=== PATIENT | female | born 1965 | race Asian ===

== ENCOUNTER → 2017-11-07 | Outpatient (CLI) | payer BC | END | disposition home or self-care (01) | LOC: RAD 10:29 | DX: M25.511 Pain in right shoulder (principal) | CPT/HCPCS: 73030; 73030-RT ==

== ENCOUNTER 2018-03-15 10:06 | Inpatient (IN) | payer BC ==
[2018-03-15] MEDS ORDERED: NITROGLYCERIN (SL) 0.4 MG TAB SL (10:30)
[2018-03-15 10:53] LABS: ADD MAN DIFF? NO
[2018-03-15] MEDS: NITROGLYCERIN 2% 1 GM OINT PKT TD (10:56)
[2018-03-15] MEDS: ASPIRIN 81 MG TAB PO (10:56)
[2018-03-15] MEDS: ONDANSETRON 4 MG INJ IV ×2 (11:00→20:01)
[2018-03-15] MEDS: morphine 4 MG/ML VIAL IV ×2 (11:00→18:07)
[2018-03-15 11:02] LABS: WHITE BLOOD COUNT 6.9 10^3/ul (4.8-10.8)
[2018-03-15 11:02] LABS: BASOPHILS % 0.4 % (0.0-2.0); EOSINOPHILS % 0.4 % (0.0-7.0); HEMATOCRIT 41.4 % (37.0-47.0); HEMOGLOBIN 13.6 g/dl (12.0-16.0); LYMPHOCYTES # 1.4 10^3/ul (0.8-2.9); LYMPHOCYTES % 19.9 % (15.0-51.0); MEAN CORPUSCULAR HEMOGLOBIN 29.3 pg (29.0-33.0); MEAN CORPUSCULAR HGB CONC 32.9 g/dl (32.0-37.0); MEAN CORPUSCULAR VOLUME 89.2 fl (82.0-101.0); MEAN PLATELET VOLUME 9.4 fl (7.4-10.4); MONOCYTE # 0.4 10^3/ul (0.3-0.9); MONOCYTES % 6.3 % (0.0-11.0); NEUTROPHILS % 72.7 % (39.0-77.0); PLATELET COUNT 276 10^3/UL (140-415); RED BLOOD COUNT 4.64 10^6/ul (4.20-5.40); RED CELL DISTRIBUTION WIDTH 12.6 % (11.5-14.5)
[2018-03-15 11:14] LABS: ANION GAP 12 (5-13); BLOOD UREA NITROGEN 13 mg/dl (7-20); CALCIUM 9.8 mg/dl (8.4-10.2); CARBON DIOXIDE 25 mmol/L (21-31); CHLORIDE 103 mmol/L (97-110); CREATININE 0.54 mg/dl (0.44-1.00); Estimated GFR > 60 mL/min (>60); GLUCOSE 121 mg/dl (70-220); SODIUM 140 mmol/L (135-144)
[2018-03-15 11:24] LABS: TROPONIN-I < 0.012 ng/ml (0.000-0.120)
[2018-03-15] MEDS ORDERED: ACETAMINOPHEN 325 MG TAB PO (12:00)
[2018-03-15] MEDS: ANASTROZOLE 1 MG TAB PO (16:00)
[2018-03-15] MEDS ORDERED: ALPRAZOLAM 0.25 MG TAB PO (16:00)
[2018-03-15] MEDS: CHOLECALCIFEROL 2,000 UNIT CAP PO (16:00)
[2018-03-15] MEDS: MELOXICAM 15 MG TAB PO (16:00)
[2018-03-15] MEDS ORDERED: ZOLPIDEM 5 MG TAB PO (16:00)
[2018-03-15 17:13] LABS: CREATINE KINASE 54 IU/L (23-200)
[2018-03-15 17:27] LABS: CK INDEX 0.8; CK-MB 0.42 ng/ml (0.0-2.4); TROPONIN-I < 0.012 ng/ml (0.000-0.120)
[2018-03-15] MEDS ORDERED: FISH OIL 1,000 MG CAP PO (19:47)
[2018-03-15] MEDS ORDERED: ZOLPIDEM 5 MG TAB (19:50)
[2018-03-15] MEDS: FISH OIL 1,000 MG CAP PO (19:59)
[2018-03-15] MEDS: PANTOPRAZOLE (EC) 40 MG TAB PO (20:00)
[2018-03-15] MEDS: ZOLPIDEM 5 MG TAB PO (20:00)
[2018-03-15] MEDS: ALPRAZOLAM 0.5 MG TAB PO (20:00)
[2018-03-15 23:47] LABS: CREATINE KINASE 52 IU/L (23-200)
[2018-03-15 23:58] LABS: CK INDEX 0.5; CK-MB 0.26 ng/ml (0.0-2.4); TROPONIN-I < 0.012 ng/ml (0.000-0.120)
[2018-03-16] MEDS ORDERED: PANTOPRAZOLE (EC) 40 MG TAB PO (04:55)
[2018-03-16] MEDS: PANTOPRAZOLE (EC) 40 MG TAB PO ×2 (06:03→17:26)
[2018-03-16] MEDS: ONDANSETRON 4 MG INJ IV ×2 (06:03→14:54)
[2018-03-16] MEDS: ALPRAZOLAM 0.5 MG TAB PO ×2 (06:03→20:27)
[2018-03-16] MEDS: morphine 4 MG/ML VIAL IV ×3 (06:03→20:28)
[2018-03-16 06:05] LABS: ADD MAN DIFF? NO
[2018-03-16 06:08] LABS: BASOPHILS % 0.3 % (0.0-2.0); EOSINOPHILS % 0.4 % (0.0-7.0); HEMATOCRIT 38.1 % (37.0-47.0); HEMOGLOBIN 12.7 g/dl (12.0-16.0); LYMPHOCYTES # 1.3 10^3/ul (0.8-2.9); LYMPHOCYTES % 19.2 % (15.0-51.0); MEAN CORPUSCULAR HEMOGLOBIN 29.5 pg (29.0-33.0); MEAN CORPUSCULAR HGB CONC 33.3 g/dl (32.0-37.0); MEAN CORPUSCULAR VOLUME 88.4 fl (82.0-101.0); MEAN PLATELET VOLUME 9.6 fl (7.4-10.4); MONOCYTE # 0.5 10^3/ul (0.3-0.9); MONOCYTES % 7.4 % (0.0-11.0); NEUTROPHIL # 4.9 10^3/ul (1.6-7.5); NEUTROPHILS % 72.4 % (39.0-77.0); PLATELET COUNT 296 10^3/UL (140-415); RED BLOOD COUNT 4.31 10^6/ul (4.20-5.40); RED CELL DISTRIBUTION WIDTH 12.5 % (11.5-14.5)
[2018-03-16 06:08] LABS: WHITE BLOOD COUNT 6.8 10^3/ul (4.8-10.8)
[2018-03-16 06:43] LABS: ALANINE AMINOTRANSFERASE 18 IU/L (13-69); ALBUMIN 4.1 g/dl (3.3-4.9); ALKALINE PHOSPHATASE 62 IU/L (42-121); ANION GAP 14 (5-13); ASPARTATE AMINO TRANSFERASE 21 IU/L (15-46); BILIRUBIN,INDIRECT 0.6 mg/dl (0-1.1); BILIRUBIN,TOTAL 0.6 mg/dl (0.2-1.3); BLOOD UREA NITROGEN 11 mg/dl (7-20); CALCIUM 9.3 mg/dl (8.4-10.2); CARBON DIOXIDE 29 mmol/L (21-31); CHLORIDE 97 mmol/L (97-110); CHOL/HDL RATIO 2.7 RATIO; CHOLESTEROL 232 mg/dl (100-200); Estimated GFR > 60 mL/min (>60); GLUCOSE 106 mg/dl (70-220); HDL CHOLESTEROL 84 mg/dl (37-92); LDL CHOLESTEROL,CALCULATED 134 mg/dl; POTASSIUM 3.9 mmol/L (3.5-5.1); SODIUM 140 mmol/L (135-144); TOTAL PROTEIN 7.5 g/dl (6.1-8.1); TRIGLYCERIDES 71 mg/dl (0-149)
[2018-03-16] MEDS: CHOLECALCIFEROL 2,000 UNIT CAP PO (08:38)
[2018-03-16] MEDS: MELOXICAM 15 MG TAB PO (08:38)
[2018-03-16] MEDS: FISH OIL 1,000 MG CAP PO (08:39)
[2018-03-16] MEDS: ANASTROZOLE 1 MG TAB PO (11:05)
[2018-03-16] MEDS: DOCUSATE SODIUM 100 MG CAP PO (17:26)
[2018-03-16] MEDS: ZOLPIDEM 5 MG TAB PO (20:27)
[2018-03-16] MEDS: CYCLOBENZAPRINE 10 MG TAB PO (20:27)
[2018-03-17] MEDS: ONDANSETRON 4 MG INJ IV (05:00)
[2018-03-17] MEDS: morphine 4 MG/ML VIAL IV ×2 (05:00→14:08)
[2018-03-17] MEDS: PANTOPRAZOLE (EC) 40 MG TAB PO ×2 (05:02→18:21)
[2018-03-17] MEDS: ALPRAZOLAM 0.5 MG TAB PO ×2 (05:02→14:00)
[2018-03-17] MEDS: CYCLOBENZAPRINE 10 MG TAB PO ×2 (05:02→20:02)
[2018-03-17] MEDS: DOCUSATE SODIUM 100 MG CAP PO ×2 (05:02→14:08)
[2018-03-17] MEDS: REGADENOSON 0.4 MG/5 ML SYG (10:09)
[2018-03-17] MEDS: FISH OIL 1,000 MG CAP PO (11:07)
[2018-03-17] MEDS: CHOLECALCIFEROL 2,000 UNIT CAP PO (11:07)
[2018-03-17] MEDS: MELOXICAM 15 MG TAB PO (11:07)
[2018-03-17] MEDS: ANASTROZOLE 1 MG TAB PO (11:13)
[2018-03-17] MEDS: ENOXAPARIN 40 MG/0.4 ML SYG SC (14:20)
[2018-03-17] MEDS: ZOLPIDEM 5 MG TAB PO (20:02)
[2018-03-18] MEDS: morphine LIQ (10 MG/5 ML) CUP PO ×4 (00:07→12:07)
[2018-03-18] MEDS: ALPRAZOLAM 0.5 MG TAB PO ×2 (02:08→10:34)
[2018-03-18] MEDS: PANTOPRAZOLE (EC) 40 MG TAB PO (06:00)
[2018-03-18] MEDS: ONDANSETRON 4 MG INJ IV (07:52)
[2018-03-18] MEDS: CHOLECALCIFEROL 2,000 UNIT CAP PO (08:18)
[2018-03-18] MEDS: FISH OIL 1,000 MG CAP PO (08:18)
[2018-03-18] MEDS: ENOXAPARIN 40 MG/0.4 ML SYG SC (08:19)
[2018-03-18] MEDS: MELOXICAM 15 MG TAB PO (08:20)
[2018-03-18] MEDS: ANASTROZOLE 1 MG TAB PO (08:23)
[2018-03-18] MEDS: CYCLOBENZAPRINE 10 MG TAB PO (12:50)
== END 2018-03-18 13:47 | disposition home or self-care (01) | DRG 313 ==
LOC: 6WM 03-17 12:36 → E/R 10:06 → 6WM 11:42
DX: R07.89 Other chest pain (principal); F41.9 Anxiety disorder, unspecified; M54.5 Low back pain; K21.9 Gastro-esophageal reflux disease without esophagitis; Z85.3 Personal history of malignant neoplasm of breast
CPT/HCPCS: 36415; 71045; 78452; 80048; 80053; 80061; 82550; 82553; 84443; 84484; 85025; 93005; 93017; 93306; 96374; 96375; 99285-25; G0378